=== PATIENT | male | born 1940 | race Caucasian/White ===

== ENCOUNTER 2018-03-04 12:28 | Inpatient (IN) | payer MEDICARE, OTHER ==
[~2018-03-04] VITALS: Ht 170.2 cm; Wt 92.4 kg
[~2018-03-04 12:28] MED LIST: ATEN1TAB38; ATO40T PO; CLON0.1T14; CLON0.3T PO; DOXA1TAB50 PO; FURO40TA; FURO40TA4 PO; GLIP-116; GLIP-116 PO; INSLANTI; INSUINJ49 SC; LISI-709; LISI40TA PO; RANITAB30 PO; WARF2TAB49 PO
[2018-03-04 13:56] LABS: Basophils # (auto) 0.1 uL; Basophils % (auto) 0.8 % (0.0-2.0); Eosinophils # (auto) 0.5 uL; Eosinophils % (auto) 4.9 % (0.0-7.0); Hematocrit 29.4 % (41.0-53.0); Lymphocytes # (auto) 1.9 uL; Lymphocytes % (auto) 18.3 % (10.0-50.0); Mean Corpuscular Hgb Conc. 33.9 g/dL (32.0-36.0); Mean Corpuscular Volume 91.5 fL (80.0-100.0); Monocytes # (auto) 0.9 uL; Monocytes % (auto) 8.3 % (0.0-12.0); Neutrophils # (auto) 6.9 uL; Neutrophils % (auto) 67.7 % (37.0-80.0); Platelet Count (auto) 227 10^3/uL (140-450); Red Blood Cells 3.22 10^6/uL (4.5-5.90); Red Cell Distribution Width 14.1 % (11.8-14.3); White Blood Cell 10.2 10^3/uL (4.4-10.8)
[2018-03-04 14:09] LABS: INR 1.04 (0.9-1.15); Prothrombin Time 11.3 sec (9.37-12.3)
[2018-03-04 14:21] LABS: Alanine Aminotransferase 18 U/L (16-61); Albumin 2.7 g/dL (3.4-5.0); Alkaline Phosphatase 111 U/L (45-117); Anion Gap 8 (5-15); Aspartate Aminotransferase 12 U/L (15-37); BUN/Creatinine Ratio 10.5; Bilirubin, Total 0.2 mg/dL (0.2-1.0); Blood Urea Nitrogen 37 mg/dL (7-18); Calcium 7.4 mg/dL (8.5-10.1); Carbon Dioxide 23 mmol/L (21-32); Chloride 107 mmol/L (98-107); GFR African American 22 mL/min; GFR Non-African American 18 mL/min; Glucose 218 mg/dL (74-106); Potassium 4.7 mmol/L (3.5-5.1); Sodium 138 mmol/L (136-145); Total Protein 6.7 g/dL (6.4-8.2)
[2018-03-04] MEDS ORDERED: AZITHROMYCIN 500MG/ 250ML 250 ML IV ONE (15:15)
[2018-03-04] MEDS ORDERED: cefTRIAXone 1GM/10ml IVPUSH 10 ML IV ONE (15:15)
[2018-03-04 18:22] LABS: Urine Bacteria FEW /hpf (None Seen); Urine Blood TRACE /uL (Negative); Urine Specific Gravity 1.012 (1.001-1.035); Urine WBC <1 /hpf (0 - 3)
[2018-03-04] MEDS ORDERED: TEMAZEPAM 15 MG CAP PO PRN (19:30)
[2018-03-04] MEDS ORDERED: ONDANSETRON HCL 4 MG/2 ML VIAL IV PRN (19:30)
[2018-03-04] MEDS ORDERED: DEXTROSE (50%) 50ML SYRG IV PRN (19:30)
[2018-03-04] MEDS ORDERED: NITROGLYCERIN 0.4 MG SL TAB SL PRN (19:30)
[2018-03-04] MEDS ORDERED: ACETAMINOPHEN 325 MG TAB PO PRN (19:30)
[2018-03-04] MEDS ORDERED: DOCUSATE SOD 100 MG CAP PO PRN (19:30)
[2018-03-04] MEDS ORDERED: MORPHINE SULFATE 4 MG/ML SYR/VIAL IV PRN ×2 (19:30)
[2018-03-04] MEDS: FAMOTIDINE 20 MG TAB PO SCH (19:45)
[2018-03-04 20:03] VITALS: BP 146/60
[2018-03-04] MEDS ORDERED: WARFARIN SODIUM 2 MG TAB PO ONE (21:15)
[2018-03-04 21:30] VITALS: BP 157/66
[2018-03-04] MEDS: SODIUM CHLOR 0.9% PF (SALINE LOCK) 10ML VIAL/SYR IV SCH (21:55)
[2018-03-04] MEDS: cloNIDine HCL 0.1 MG TAB PO SCH (21:56)
[2018-03-04] MEDS: ATORVASTATIN 20 MG TAB PO SCH (21:56)
[2018-03-04] MEDS: ACCU-CHEK COMFORT CURVE STRIP VI SCH (21:57)
[2018-03-04] MEDS: InsuLIN REG 1unit/0.01ml Soln (100units/ml) SC SCH (21:57)
[2018-03-04] MEDS: IPRATROPIUM BROM 0.5 MG/2.5ML INH SOL NEB SCH (23:37)
[2018-03-04] MEDS: ALBUTEROL SULF 2.5 MG/0.5ML(0.5%) NEB SOLN NEB SCH (23:37)
[2018-03-05 05:07] VITALS: BP 151/54
[2018-03-05] MEDS: SODIUM CHLOR 0.9% PF (SALINE LOCK) 10ML VIAL/SYR IV SCH ×3 (06:01→21:47)
[2018-03-05] MEDS: FUROSEMIDE 40 MG TAB PO SCH ×2 (06:01→17:22)
[2018-03-05] MEDS: InsuLIN REG 1unit/0.01ml Soln (100units/ml) SC SCH ×4 (06:02→21:49)
[2018-03-05] MEDS: glipiZIDE 5 MG TAB PO SCH ×2 (06:02→17:22)
[2018-03-05] MEDS: ACCU-CHEK COMFORT CURVE STRIP VI SCH ×4 (06:03→21:49)
[2018-03-05 07:07] LABS: Basophils # (auto) 0 uL; Basophils % (auto) 0.6 % (0.0-2.0); Eosinophils # (auto) 0.3 uL; Hematocrit 26.3 % (41.0-53.0); Hemoglobin 9.1 g/dL (13.5-17.5); Lymphocytes # (auto) 1.7 uL; Lymphocytes % (auto) 20.5 % (10.0-50.0); Mean Corpuscular Hemoglobin 31.9 pg (28.0-32.0); Mean Corpuscular Hgb Conc. 34.8 g/dL (32.0-36.0); Mean Corpuscular Volume 91.7 fL (80.0-100.0); Monocytes # (auto) 0.8 uL; Monocytes % (auto) 10.1 % (0.0-12.0); Neutrophils # (auto) 5.5 uL; Neutrophils % (auto) 64.8 % (37.0-80.0); Nucleated Red Blood Cells % 0.1 %; Platelet Count (auto) 181 10^3/uL (140-450); Red Blood Cells 2.87 10^6/uL (4.5-5.90); Red Cell Distribution Width 14.3 % (11.8-14.3); White Blood Cell 8.4 10^3/uL (4.4-10.8)
[2018-03-05 07:10] LABS: INR 1.02 (0.9-1.15); Partial Thromboplastin Time 34.2 sec (22.64-33.71); Prothrombin Time 11.1 sec (9.37-12.3)
[2018-03-05 07:14] LABS: Potassium 4.5 mmol/L (3.5-5.1)
[2018-03-05 07:21] LABS: Albumin 2.3 g/dL (3.4-5.0); BUN/Creatinine Ratio 11.6; Calcium 7.2 mg/dL (8.5-10.1)
[2018-03-05] MEDS: ALBUTEROL SULF 2.5 MG/0.5ML(0.5%) NEB SOLN NEB SCH ×3 (07:21→19:18)
[2018-03-05] MEDS: IPRATROPIUM BROM 0.5 MG/2.5ML INH SOL NEB SCH ×3 (07:21→19:18)
[2018-03-05 07:28] LABS: Bilirubin, Total 0.3 mg/dL (0.2-1.0); Total Protein 6.1 g/dL (6.4-8.2)
[2018-03-05] MEDS: INSULIN 70/30 1unit/0.01ml Susp (100units/ml) SC SCH (08:00)
[2018-03-05 08:30] VITALS: BP 143/54
[2018-03-05] MEDS: cefTRIAXone 1GM/10ml IVPUSH 10 ML IV SCH (09:32)
[2018-03-05] MEDS: AZITHROMYCIN 500MG/ 250ML 250 ML IV SCH (09:32)
[2018-03-05] MEDS: LISINOPRIL 20 MG TAB PO SCH ×2 (09:33→17:23)
[2018-03-05] MEDS: cloNIDine HCL 0.1 MG TAB PO SCH ×2 (09:33→21:48)
[2018-03-05] MEDS: MULTIPLE VITAMIN TAB PO SCH (09:33)
[2018-03-05] MEDS: FAMOTIDINE 20 MG TAB PO SCH (09:33)
[2018-03-05] MEDS: Boost Glucose Control 8 Ounces PO SCH ×3 (09:34→17:24)
[2018-03-05 12:30] VITALS: BP 160/67
[2018-03-05 15:58] LABS: Urine Bacteria NONE SEEN /hpf (None Seen); Urine Blood TRACE /uL (Negative); Urine WBC <1 /hpf (0 - 3)
[2018-03-05 16:02] LABS: Protein, Urine 336.6 mg/dL (0.0-11.9)
[2018-03-05 16:22] VITALS: BP 194/66
[2018-03-05] MEDS ORDERED: WARFARIN SODIUM 5 MG TAB PO ONE (17:00)
[2018-03-05] MEDS: cloNIDine HCL 0.1 MG TAB PO PRN (17:24)
[2018-03-05 18:25] VITALS: BP 159/64
[2018-03-05] MEDS: ATORVASTATIN 20 MG TAB PO SCH (21:48)
[2018-03-05 22:00] VITALS: BP 164/59
[2018-03-06] MEDS: ALBUTEROL SULF 2.5 MG/0.5ML(0.5%) NEB SOLN NEB SCH ×5 (00:35→22:41)
[2018-03-06] MEDS: IPRATROPIUM BROM 0.5 MG/2.5ML INH SOL NEB SCH ×5 (00:35→22:40)
[2018-03-06 05:00] VITALS: BP 151/55
[2018-03-06] MEDS: glipiZIDE 5 MG TAB PO SCH ×2 (06:03→17:29)
[2018-03-06] MEDS: FUROSEMIDE 40 MG TAB PO SCH ×2 (06:03→17:28)
[2018-03-06] MEDS: SODIUM CHLOR 0.9% PF (SALINE LOCK) 10ML VIAL/SYR IV SCH ×3 (06:03→21:45)
[2018-03-06] MEDS: ACCU-CHEK COMFORT CURVE STRIP VI SCH ×4 (06:04→21:48)
[2018-03-06] MEDS: InsuLIN REG 1unit/0.01ml Soln (100units/ml) SC SCH ×4 (06:04→21:47)
[2018-03-06 06:49] LABS: Basophils # (auto) 0.1 uL; Basophils % (auto) 0.5 % (0.0-2.0); Eosinophils # (auto) 0.4 uL; Eosinophils % (auto) 4.3 % (0.0-7.0); Hematocrit 28.2 % (41.0-53.0); Hemoglobin 9.7 g/dL (13.5-17.5); Lymphocytes # (auto) 1.8 uL; Lymphocytes % (auto) 18.8 % (10.0-50.0); Mean Corpuscular Hemoglobin 31.8 pg (28.0-32.0); Mean Corpuscular Hgb Conc. 34.5 g/dL (32.0-36.0); Monocytes # (auto) 0.9 uL; Monocytes % (auto) 8.7 % (0.0-12.0); Neutrophils # (auto) 6.6 uL; Neutrophils % (auto) 67.7 % (37.0-80.0); Platelet Count (auto) 200 10^3/uL (140-450); Red Blood Cells 3.07 10^6/uL (4.5-5.90); Red Cell Distribution Width 13.9 % (11.8-14.3); White Blood Cell 9.8 10^3/uL (4.4-10.8)
[2018-03-06 07:09] LABS: INR 1.16 (0.9-1.15); Prothrombin Time 12.7 sec (9.37-12.3)
[2018-03-06 07:10] LABS: Albumin 2.7 g/dL (3.4-5.0); BUN/Creatinine Ratio 11.1; Bilirubin, Total 0.3 mg/dL (0.2-1.0); Calcium 7.7 mg/dL (8.5-10.1); Phosphorus 4.9 mg/dL (2.5-4.90); Potassium 4.2 mmol/L (3.5-5.1); Total Protein 6.6 g/dL (6.4-8.2); Uric Acid 8.3 mg/dL (3.5-7.2)
[2018-03-06 07:22] LABS: % Iron Saturation 13.4 % (20-55)
[2018-03-06] MEDS: LISINOPRIL 20 MG TAB PO SCH (07:57)
[2018-03-06] MEDS: INSULIN 70/30 1unit/0.01ml Susp (100units/ml) SC SCH (07:58)
[2018-03-06] MEDS: Boost Glucose Control 8 Ounces PO SCH ×3 (07:58→17:39)
[2018-03-06 08:30] VITALS: BP 162/78
[2018-03-06] MEDS: FAMOTIDINE 20 MG TAB PO SCH (09:40)
[2018-03-06] MEDS: MULTIPLE VITAMIN TAB PO SCH (09:41)
[2018-03-06] MEDS: cefTRIAXone 1GM/10ml IVPUSH 10 ML IV SCH (09:41)
[2018-03-06] MEDS: cloNIDine HCL 0.1 MG TAB PO SCH ×2 (09:42→21:46)
[2018-03-06] MEDS: AZITHROMYCIN 500MG/ 250ML 250 ML IV SCH (09:42)
[2018-03-06 13:00] VITALS: BP 166/72
[2018-03-06] MEDS ORDERED: METOPROLOL TARTRATE 25 MG TAB PO ONE (15:00)
[2018-03-06] MEDS ORDERED: guaiFENesin-DM 100/10mg/5ml SYR PO PRN (15:00)
[2018-03-06 16:59] VITALS: BP 195/75
[2018-03-06] MEDS ORDERED: WARFARIN SODIUM 2.5 MG TAB PO ONE (17:00)
[2018-03-06] MEDS: cloNIDine HCL 0.1 MG TAB PO PRN (17:28)
[2018-03-06 18:30] VITALS: BP 161/64
[2018-03-06] MEDS ORDERED: DOXAZOSIN MESYL 2 MG TAB PO ONE (21:00)
[2018-03-06] MEDS: ATORVASTATIN 20 MG TAB PO SCH (21:46)
[2018-03-06] MEDS: METOPROLOL TARTRATE 25 MG TAB PO SCH (21:47)
[2018-03-06 22:00] VITALS: BP 164/70
[2018-03-07 05:00] VITALS: BP 153/67
[2018-03-07] MEDS: FUROSEMIDE 40 MG TAB PO SCH (05:47)
[2018-03-07] MEDS: SODIUM CHLOR 0.9% PF (SALINE LOCK) 10ML VIAL/SYR IV SCH ×2 (05:48→14:00)
[2018-03-07] MEDS: glipiZIDE 5 MG TAB PO SCH (06:09)
[2018-03-07] MEDS: InsuLIN REG 1unit/0.01ml Soln (100units/ml) SC SCH ×3 (06:10→17:00)
[2018-03-07] MEDS: ACCU-CHEK COMFORT CURVE STRIP VI SCH ×3 (06:11→17:00)
[2018-03-07 06:16] LABS: INR 1.71 (0.9-1.15); Prothrombin Time 18.7 sec (9.37-12.3)
[2018-03-07 06:23] LABS: Hematocrit 26.4 % (41.0-53.0); Hemoglobin 9.3 g/dL (13.5-17.5)
[2018-03-07 06:36] LABS: BUN/Creatinine Ratio 11.3; Calcium 7.8 mg/dL (8.5-10.1)
[2018-03-07] MEDS: IPRATROPIUM BROM 0.5 MG/2.5ML INH SOL NEB SCH ×2 (06:50→13:50)
[2018-03-07] MEDS: ALBUTEROL SULF 2.5 MG/0.5ML(0.5%) NEB SOLN NEB SCH ×2 (06:50→13:50)
[2018-03-07 07:22] LABS: Albumin 2.5 g/dL (3.4-5.0); Bilirubin, Total 0.2 mg/dL (0.2-1.0); Total Protein 6.1 g/dL (6.4-8.2)
[2018-03-07] MEDS: Boost Glucose Control 8 Ounces PO SCH (08:00)
[2018-03-07] MEDS: INSULIN 70/30 1unit/0.01ml Susp (100units/ml) SC SCH (08:17)
[2018-03-07] MEDS: cefTRIAXone 1GM/10ml IVPUSH 10 ML IV SCH (08:57)
[2018-03-07 09:00] VITALS: BP 153/70
[2018-03-07] MEDS: HYDROcodone-ACET 5/325MG TAB PO PRN ×2 (09:16→14:46)
[2018-03-07] MEDS: AZITHROMYCIN 500MG/ 250ML 250 ML IV SCH (10:11)
[2018-03-07] MEDS: METOPROLOL TARTRATE 25 MG TAB PO SCH (11:05)
[2018-03-07] MEDS: cloNIDine HCL 0.1 MG TAB PO SCH (11:06)
[2018-03-07] MEDS: FAMOTIDINE 20 MG TAB PO SCH (11:07)
[2018-03-07] MEDS: MULTIPLE VITAMIN TAB PO SCH (11:08)
[2018-03-07 13:01] VITALS: BP 179/80
[2018-03-07 15:41] VITALS: BP 148/63
[2018-03-07] MEDS ORDERED: WARFARIN SODIUM 2 MG TAB PO ONE (17:00)
== END 2018-03-07 16:45 | disposition home or self-care (01) | DRG 682 ==
LOC: ER 12:28 → TELE 12:29 → TELE-WESTW 21:01
PROVIDERS: ADMIT Internal Medicine; ATTEND Family Medicine
DX: N17.0 Acute kidney failure with tubular necrosis (principal); J96.00 Acute respiratory failure, unspecified whether with hypoxia or hypercapnia; E44.0 Moderate protein-calorie malnutrition; J18.1 Lobar pneumonia, unspecified organism; E10.21 Type 1 diabetes mellitus with diabetic nephropathy; E10.65 Type 1 diabetes mellitus with hyperglycemia; E83.51 Hypocalcemia; I42.9 Cardiomyopathy, unspecified; I13.0 Hypertensive heart and chronic kidney disease with heart failure and stage 1 through stage 4 chronic kidney disease, or unspecified chronic kidney disease; J44.0 Chronic obstructive pulmonary disease with (acute) lower respiratory infection; N39.0 Urinary tract infection, site not specified; I69.351 Hemiplegia and hemiparesis following cerebral infarction affecting right dominant side; N28.0 Ischemia and infarction of kidney; I50.32 Chronic diastolic (congestive) heart failure; N32.0 Bladder-neck obstruction; N18.4 Chronic kidney disease, stage 4 (severe); E10.22 Type 1 diabetes mellitus with diabetic chronic kidney disease; D63.8 Anemia in other chronic diseases classified elsewhere; G47.00 Insomnia, unspecified; K59.00 Constipation, unspecified; N26.1 Atrophy of kidney (terminal); J92.9 Pleural plaque without asbestos; I70.0 Atherosclerosis of aorta; R16.0 Hepatomegaly, not elsewhere classified; R79.89 Other specified abnormal findings of blood chemistry; I65.21 Occlusion and stenosis of right carotid artery; E78.5 Hyperlipidemia, unspecified; N18.3 Chronic kidney disease, stage 3 (moderate); N40.0 Benign prostatic hyperplasia without lower urinary tract symptoms; Z82.49 Family history of ischemic heart disease and other diseases of the circulatory system; Z87.891 Personal history of nicotine dependence; Z88.5 Allergy status to narcotic agent; Z88.8 Allergy status to other drugs, medicaments and biological substances; Z79.899 Other long term (current) drug therapy; Z90.49 Acquired absence of other specified parts of digestive tract; Z90.89 Acquired absence of other organs; Z68.31 Body mass index [BMI] 31.0-31.9, adult
CPT/HCPCS: 36415; 71045; 71250; 74176; 76775; 80053; 80061; 81001; 82306; 82570; 82962; 83036; 83540; 83550; 83735; 83880; 84100; 84154; 84156; 84300; 84484; 84550; 85014; 85018; 85025; 85610; 85730; 87040; 93005; 93306; 93886; 94640; 96365; 96366; 96375; J1815